=== PATIENT | male | born 1985 | race Caucasian/White ===

== ENCOUNTER 2020-01-28 20:23 | Emergency (ER) | payer OTHER, SELFPAY ==
[2020-01-28] MEDS ORDERED: Bacitracin 1 PK ONE (21:26)
[2020-01-28] MEDS ORDERED: Lidocaine 1% (PF) 30 ML VIAL ONE (21:26)
[2020-01-28] MEDS ORDERED: traMADol HCl 50 MG TAB ONE (21:54)
== END 2020-01-28 22:09 | disposition home or self-care (01) ==
LOC: ERS 20:23
DX: L02.412 Cutaneous abscess of left axilla (principal); L02.415 Cutaneous abscess of right lower limb; F17.210 Nicotine dependence, cigarettes, uncomplicated; F43.10 Post-traumatic stress disorder, unspecified; I10 Essential (primary) hypertension; E78.5 Hyperlipidemia, unspecified; E78.00 Pure hypercholesterolemia, unspecified
CPT/HCPCS: 10060; J2001

== ENCOUNTER 2020-01-31 17:21 | Emergency (ER) | payer OTHER | END 2020-01-31 18:31 | disposition home or self-care (01) | LOC: ERS 17:21 | DX: N48.89 Other specified disorders of penis (principal); E78.5 Hyperlipidemia, unspecified; E78.00 Pure hypercholesterolemia, unspecified; I10 Essential (primary) hypertension; F43.10 Post-traumatic stress disorder, unspecified; F17.210 Nicotine dependence, cigarettes, uncomplicated; Z79.899 Other long term (current) drug therapy | CPT/HCPCS: 99283 ==

== ENCOUNTER 2020-02-02 09:14 | Emergency (ER) | payer OTHER | END 2020-02-02 10:14 | disposition home or self-care (01) | LOC: ERS 09:14 | DX: N48.1 Balanitis (principal); E78.00 Pure hypercholesterolemia, unspecified; I10 Essential (primary) hypertension; F43.10 Post-traumatic stress disorder, unspecified; F17.210 Nicotine dependence, cigarettes, uncomplicated | CPT/HCPCS: 99283 ==